=== PATIENT | female | born 1965 | race African-American/Black ===

== ENCOUNTER 2016-10-21 16:07 | Emergency (ER) | payer OTHER ==
[2016-10-21 17:08] VITALS: BP 115/84; PULSE 82; TEMP 98; BMI 29.6
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
[2016-10-21 19:46] LABS: BASOPHIL 1.4 % (0-2.0); EOSINOPHIL 3.1 % (0-4.5); MCH 20.8 pg (25.7-33.7); MCHC 30.5 g/dl (32.0-36.0); MEAN CELL VOLUME 68.2 fl (80-96); MEAN PLT VOLUME 8.2 fl (7.5-11.1); NEUTROPHILS 55.8 % (42.8-82.8); PLATELET COUNT 263 K/MM3 (134-434); RDW 19.7 % (11.6-15.6); WHITE BLOOD COUNT 5.7 K/mm3 (4.0-10.0)
[2016-10-21 20:12] LABS: ALBUMIN 3.4 g/dl (3.4-5.0); ALK PHOS 64 U/L (45-117); ANION GAP 7 (8-16); BILIRUBIN,TOTAL 0.2 mg/dL (0.2-1.0); CALCIUM 8.8 mg/dL (8.5-10.1); CO2 26 mmol/L (21-32); CREATININE 0.8 mg/dL (0.55-1.02); GLUCOSE,RANDOM 98 mg/dL (74-106); SGPT/ALT 35 U/L (12-78); TOT PROT 7.6 g/dl (6.4-8.2)
[2016-10-21 20:17] LABS: SGOT/AST 49 U/L (15-37)
[2016-10-21 20:32] LABS: PROTHROMBIN TIME (PATIENT) 45.8 SEC (9.98-11.88)
[2016-10-21 21:01] LABS: INR 4.05 (0.82-1.09)
--- NOTE | 2016-10-21 21:08 | PDOC ---
*Physical Exam - Vital Signs Last Vital Signs Temp Pulse Resp BP Pulse Ox 98.0 F 82 18 115/84 100 10/21/16 16:07 10/21/16 16:07 10/21/16 16:07 10/21/16 16:07 10/21/16 16:07 ED Treatment Course - LABORATORY CBC & Chemistry Diagram: 10/21/16 17:37 10/21/16 19:33 - ADDITIONAL ORDERS Additional order review: Laboratory Results 10/21/16 10/21/16 19:33 17:37 INR 4.05 H* D Sodium 144 Potassium 4.0 Chloride 111 H Carbon Dioxide 26 Anion Gap 7 L BUN 10 Creatinine 0.8 Creat Clearance w eGFR > 60 Random Glucose 98 Calcium 8.8 Total Bilirubin 0.2 D AST 49 H D ALT 35 Alkaline Phosphatase 64 Total Protein 7.6 Albumin 3.4 10/21/16 17:37 RBC 4.66 MCV 68.2 L MCHC 30.5 L RDW 19.7 H MPV 8.2 Neutrophils % 55.8 Lymphocytes % 32.3 Monocytes % 7.4 Eosinophils % 3.1 Basophils % 1.4 *DC/Admit/Observation/Transfer Diagnosis at time of Disposition: Leg pain, Coagulopathy - Discharge Dispostion Disposition: HOME Condition at time of disposition: Stable Admit: No - Referrals Referrals: Erendira Stehpenson MD [Primary Care Provider] - - Patient Instructions Printed Discharge Instructions: Warfarin Additional Instructions: Don't take Coumadin for two days. restart on day 3. See Dr. Stephenson on Wednesday.
[2016-10-21 22:14] LABS: ANISOCYTOSIS 1+; HYPOCHROMIA 3+; MICROCYTOSIS 1+; OVALOCYTES 1+; PLATELET ESTIMATE ADEQUATE (NORMAL); POIKILOCYTOSIS 1+; TARGET CELLS RARE
== END 2016-10-21 21:17 | disposition home or self-care (01) ==
LOC: JER 16:07
DX: D68.9 Coagulation defect, unspecified (principal); Z79.01 Long term (current) use of anticoagulants
CPT/HCPCS: 36415; 80053; 85025; 85610; 99282-25

== ENCOUNTER 2019-11-04 15:33 | Emergency (ER) | payer OTHER ==
[2019-11-04 16:02] VITALS: BP 118/79; PULSE 80; TEMP 98.3; BMI 31.1
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
[2019-11-04 17:04] LABS: BASO % 1.8 % (0-2.0); HEMATOCRIT 44.1 % (32.4-45.2); HEMOGLOBIN 14.7 GM/dL (10.7-15.3); LYMPH % 34.3 % (8-40); MCH 31.3 pg (25.7-33.7); MCHC 33.2 g/dl (32.0-36.0); MEAN CELL VOLUME 94.2 fl (80-96); MEAN PLT VOLUME 9.1 fl (7.5-11.1); MONO % 6.6 % (3.8-10.2); NEUT % 53.3 % (42.8-82.8); PLATELET COUNT 221 K/MM3 (134-434); RBC 4.68 M/mm3 (3.60-5.2); RDW 14.1 % (11.6-15.6); WHITE BLOOD COUNT 5.4 K/mm3 (4.0-10.0)
[2019-11-04 17:09] LABS: INR 2.27 (0.83-1.09)
[2019-11-04 17:55] LABS: ALBUMIN 3.6 g/dl (3.4-5.0); BILIRUBIN,TOTAL 0.2 mg/dL (0.2-1); BLOOD UREA NITROGEN 8.6 mg/dL (7-18); CALCIUM 9.6 mg/dL (8.5-10.1); CREATININE 0.9 mg/dL (0.55-1.3); POTASSIUM 4.7 mmol/L (3.5-5.1); TOT PROT 7.8 g/dl (6.4-8.2)
== END 2019-11-04 19:04 | disposition home or self-care (01) ==
LOC: JER 15:33
DX: Z79.01 Long term (current) use of anticoagulants (principal)
CPT/HCPCS: 36415; 70450-TC; 80053; 85025; 85610; 86850; 86900; 86901; 99284-25

== ENCOUNTER 2021-08-07 11:32 | Emergency (ER) | payer OTHER ==
[2021-08-07 11:54] VITALS: BP 130/85; PULSE 100; TEMP 97.8; BMI 30.5
[2021-08-07] MEDS ORDERED: ACETAMINOPHEN 500 MG TABLET (FP) PO ONE (12:45)
[2021-08-07] MEDS ORDERED: DIPHTH,PERTUSS(ACELL),TET 0.5 ML DISP.SYRIN IM ONE ×2 (12:45→12:47)
[2021-08-07] MEDS ORDERED: ACETAMINOPHEN 500 MG TABLET (FP) ONE (12:46)
[2021-08-07 18:00] LABS: BASO % 1.1 % (0-2.0); EOS % 1.7 % (0-4.5); HEMATOCRIT 45.6 % (32.4-45.2); HEMOGLOBIN 14.9 GM/dL (10.7-15.3); LYMPH % 31.8 % (8-40); MCH 29.9 pg (25.7-33.7); MCHC 32.6 g/dl (32.0-36.0); MEAN CELL VOLUME 91.7 fl (80-96); MEAN PLT VOLUME 8.9 fl (7.5-11.1); MONO % 6.4 % (3.8-10.2); PLATELET COUNT 210 10^3/uL (134-434); RBC 4.97 M/mm3 (3.60-5.2); RDW 13.9 % (11.6-15.6); WHITE BLOOD COUNT 5.8 K/mm3 (4.0-10.0)
[2021-08-07 18:07] LABS: INR 1.74 (0.83-1.09); PROTHROMBIN TIME (PATIENT) 20.1 SEC (9.7-13.0)
[2021-08-07 18:59] LABS: ALBUMIN 3.8 g/dl (3.4-5.0); BLOOD UREA NITROGEN 8.9 mg/dL (7-18); CALCIUM 9.9 mg/dL (8.5-10.1)
[2021-08-07 19:02] LABS: CREATININE 0.7 mg/dL (0.55-1.3)
[2021-08-07 19:04] LABS: BILIRUBIN,TOTAL 0.6 mg/dL (0.2-1); TOT PROT 7.9 g/dl (6.4-8.2)
== END 2021-08-07 20:59 | disposition home or self-care (01) ==
LOC: JERFT 11:32
PROC: 3E0234Z Introduction of Serum, Toxoid and Vaccine into Muscle, Percutaneous Approach (ICD-10-PCS; principal; 2021-08-07)
DX: S60.511A Abrasion of right hand, initial encounter (principal); M25.531 Pain in right wrist; S90.31XA Contusion of right foot, initial encounter; M25.571 Pain in right ankle and joints of right foot; W10.9XXA Fall (on) (from) unspecified stairs and steps, initial encounter
CPT/HCPCS: 36415; 73110-TC-RT-FY; 73130-TC-RT-FY; 73562-TC-RT-FY; 73590-TC-RT-FY; 73610-TC-RT-FY; 73630-TC-RT-FY; 80053; 85025; 85610; 90471; 90715; 99285-25

== ENCOUNTER 2021-08-15 23:08 | Inpatient (IN) | payer OTHER ==
[2021-08-15 23:15] VITALS: BMI 31.9
[2021-08-16] MEDS ORDERED: ACETAMINOPHEN 1000 MG/100 ML BAG IVPB ONE (01:02)
[2021-08-16] MEDS ORDERED: ACETAMINOPHEN INJECTION 100 ML IVPB ONE ×2 (01:21→05:57)
[2021-08-16 01:50] LABS: BASO % 1.2 % (0-2.0); EOS % 3.5 % (0-4.5); HEMATOCRIT 40.4 % (32.4-45.2); HEMOGLOBIN 13.4 GM/dL (10.7-15.3); MCH 30.3 pg (25.7-33.7); MCHC 33.2 g/dl (32.0-36.0); MEAN CELL VOLUME 91.2 fl (80-96); MEAN PLT VOLUME 8.7 fl (7.5-11.1); MONO % 7.5 % (3.8-10.2); NEUT % 61.8 % (42.8-82.8); PLATELET COUNT 225 10^3/uL (134-434); RBC 4.43 M/mm3 (3.60-5.2); RDW 14.1 % (11.6-15.6); WHITE BLOOD COUNT 6.1 K/mm3 (4.0-10.0)
[2021-08-16 02:03] LABS: INR 2.52 (0.83-1.09); PROTHROMBIN TIME (PATIENT) 29.2 SEC (9.7-13.0)
[2021-08-16 02:05] LABS: ACTIVATED PTT 41.6 SECONDS (25.2-36.5)
[2021-08-16 02:09] LABS: ALBUMIN 3.3 g/dl (3.4-5.0)
[2021-08-16 02:10] LABS: BLOOD UREA NITROGEN 15.9 mg/dL (7-18)
[2021-08-16 02:14] LABS: BILIRUBIN,TOTAL 0.3 mg/dL (0.2-1); TOT PROT 7.3 g/dl (6.4-8.2)
[2021-08-16 02:55] LABS: ERYTHROCYTE SEDIMENTATION RATE 34 mm/hr (0-30)
[2021-08-16] MEDS ORDERED: morphine CARPU-JECT 2 MG/1 ML DISP.SYRIN IVPUSH ONE (02:58)
[2021-08-16] MEDS: ACETAMINOPHEN 1000 MG/100 ML BAG IVPB PRN ×2 (06:03→19:11)
[2021-08-16 06:38] LABS: URIC ACID 4.2 mg/dL (2.6-7.2)
[2021-08-16 13:29] LABS: CALCIUM 9.3 mg/dL (8.5-10.1)
[2021-08-16 13:30] LABS: ALBUMIN 3.4 g/dl (3.4-5.0)
[2021-08-16 13:33] LABS: CREATININE 0.7 mg/dL (0.55-1.3)
[2021-08-16 13:35] LABS: BILIRUBIN,TOTAL 0.4 mg/dL (0.2-1); TOT PROT 7.3 g/dl (6.4-8.2)
[2021-08-16 15:17] LABS: BLOOD UREA NITROGEN 13.8 mg/dL (7-18)
[2021-08-16] MEDS ORDERED: WARFARIN NA 2 MG TABLET PO ONE (18:45)
[2021-08-16] MEDS ORDERED: predniSONE 10 MG TABLET (UD) PO PRN (18:52)
[2021-08-17 08:59] LABS: BASO % 1.7 % (0-2.0); EOS % 4.8 % (0-4.5); HEMATOCRIT 39.8 % (32.4-45.2); HEMOGLOBIN 13.1 GM/dL (10.7-15.3); LYMPH % 28.5 % (8-40); MCH 30.1 pg (25.7-33.7); MCHC 32.9 g/dl (32.0-36.0); MEAN CELL VOLUME 91.6 fl (80-96); MEAN PLT VOLUME 8.7 fl (7.5-11.1); MONO % 6.6 % (3.8-10.2); NEUT % 58.4 % (42.8-82.8); PLATELET COUNT 227 10^3/uL (134-434); RBC 4.34 M/mm3 (3.60-5.2); RDW 13.9 % (11.6-15.6); WHITE BLOOD COUNT 4.3 K/mm3 (4.0-10.0)
[2021-08-17 09:11] LABS: INR 2.39 (0.83-1.09); PROTHROMBIN TIME (PATIENT) 27.7 SEC (9.7-13.0)
[2021-08-17 09:20] LABS: ALBUMIN 3.2 g/dl (3.4-5.0); BLOOD UREA NITROGEN 12.2 mg/dL (7-18); CALCIUM 9.2 mg/dL (8.5-10.1); MAGNESIUM 2.3 mg/dL (1.8-2.4)
[2021-08-17 09:23] LABS: PHOSPHOROUS 2.8 mg/dL (2.5-4.9)
[2021-08-17 09:24] LABS: CREATININE 0.6 mg/dL (0.55-1.3)
[2021-08-17 09:25] LABS: TOT PROT 6.9 g/dl (6.4-8.2)
[2021-08-17 09:26] LABS: BILIRUBIN,TOTAL 0.6 mg/dL (0.2-1)
[2021-08-17] MEDS ORDERED: SODIUM CHLORIDE 0.9% 250 ML INFUS.BAG IV ONE (17:07)
[2021-08-17] MEDS ORDERED: SODIUM CHLORIDE 0.9% 500 ML INFUS.BAG IV ONE (17:07)
[2021-08-17] MEDS ORDERED: SODIUM CHLORIDE 1,000 ML IV SCH (17:15)
[2021-08-17] MEDS ORDERED: HYDROCORTISONE 0.5% TOPICAL CREAM 30 GM TUBE TP ONE (17:28)
[2021-08-17] MEDS: WARFARIN NA 2 MG TABLET PO SCH (17:59)
[2021-08-17 23:44] LABS: EPI CELLS >36 /uL (0-25.1); HYALINE CASTS 3 /uL (0-3.1); PH,URINE 5.5 (5.0-8.0); URINE APPEARANCE CLOUDY; URINE BACTERIA 5540 /uL (0-1359); URINE BILIRUBIN NEGATIVE (NEGATIVE); URINE COLOR YELLOW; URINE GLUCOSE (UA) NEGATIVE (NEGATIVE); URINE KETONE NEGATIVE (NEGATIVE); URINE LEUK ESTERASE NEGATIVE (NEGATIVE); URINE NITRITE NEGATIVE (NEGATIVE); URINE PROTEIN NEGATIVE (NEGATIVE); URINE RBC 7 /uL (0-23.9); URINE UROBILINOGEN 0.2 mg/dL (0.2-1.0)
[2021-08-18] MEDS ORDERED: MELATONIN 5 MG TABLETS PO ONE (01:02)
[2021-08-18 09:24] LABS: MCH 31.2 pg (25.7-33.7); MCHC 34.2 g/dl (32.0-36.0); MEAN CELL VOLUME 91.1 fl (80-96); MEAN PLT VOLUME 8.7 fl (7.5-11.1); PLATELET COUNT 206 10^3/uL (134-434); RBC 4.18 M/mm3 (3.60-5.2); RDW 14.3 % (11.6-15.6); WHITE BLOOD COUNT 5.2 K/mm3 (4.0-10.0)
[2021-08-18 09:31] LABS: INR 2.36 (0.83-1.09); PROTHROMBIN TIME (PATIENT) 27.4 SEC (9.7-13.0)
[2021-08-18 10:36] LABS: CALCIUM 9.2 mg/dL (8.5-10.1)
[2021-08-18 10:37] LABS: BLOOD UREA NITROGEN 11.6 mg/dL (7-18)
[2021-08-18 10:53] LABS: CREATININE 0.7 mg/dL (0.55-1.3)
[2021-08-18] MEDS: WARFARIN NA 2 MG TABLET PO SCH (18:34)
[2021-08-18] MEDS ORDERED: ACETAMINOPHEN 1000 MG/100 ML BAG IVPB ONE (22:54)
[2021-08-19 09:43] LABS: BASO % 1.2 % (0-2.0); EOS % 3.4 % (0-4.5); HEMOGLOBIN 13.4 GM/dL (10.7-15.3); LYMPH % 28.2 % (8-40); MCH 30.5 pg (25.7-33.7); MCHC 33.6 g/dl (32.0-36.0); MEAN PLT VOLUME 8.4 fl (7.5-11.1); MONO % 7.4 % (3.8-10.2); NEUT % 59.8 % (42.8-82.8); PLATELET COUNT 213 10^3/uL (134-434); RBC 4.39 M/mm3 (3.60-5.2); RDW 14.4 % (11.6-15.6); WHITE BLOOD COUNT 4.4 K/mm3 (4.0-10.0)
[2021-08-19 09:48] LABS: INR 2.55 (0.83-1.09); PROTHROMBIN TIME (PATIENT) 29.6 SEC (9.7-13.0)
[2021-08-19 10:10] LABS: BLOOD UREA NITROGEN 12.6 mg/dL (7-18); CALCIUM 9.1 mg/dL (8.5-10.1)
[2021-08-19 10:11] LABS: ALBUMIN 3.2 g/dl (3.4-5.0)
[2021-08-19 10:14] LABS: CREATININE 0.7 mg/dL (0.55-1.3)
[2021-08-19 10:16] LABS: BILIRUBIN,TOTAL 0.5 mg/dL (0.2-1); TOT PROT 6.9 g/dl (6.4-8.2)
[2021-08-19] MEDS: WARFARIN NA 2 MG TABLET PO SCH (17:35)
[2021-08-19] MEDS: CEPHALEXIN MONOHYDRATE 250 MG CAPSULE (FP) PO SCH (19:14)
[2021-08-20] MEDS: CEPHALEXIN MONOHYDRATE 250 MG CAPSULE (FP) PO SCH ×3 (00:14→12:50)
[2021-08-20 10:12] LABS: INR 2.43 (0.83-1.09); PROTHROMBIN TIME (PATIENT) 28.2 SEC (9.7-13.0)
[2021-08-20] MEDS ORDERED: DOCUSATE SODIUM 100 MG CAPSULE (FP) PO PRN (16:37)
[2021-08-20] MEDS: WARFARIN NA 2 MG TABLET PO SCH (18:03)
[2021-08-20] MEDS: CEFAZOLIN 2 GM in DEXTROSE 5%-WATER - 100 ML IVPB SCH (18:29)
[2021-08-20] MEDS ORDERED: MELATONIN 5 MG TABLETS PO ONE (23:13)
[2021-08-20] MEDS: SENNOSIDES 8.6MG TABLET (FP) PO SCH (23:36)
[2021-08-21] MEDS: CEFAZOLIN 2 GM in DEXTROSE 5%-WATER - 100 ML IVPB SCH ×2 (01:09→15:01)
[2021-08-21 09:27] LABS: EOS % 0.4 % (0-4.5); HEMOGLOBIN 13.7 GM/dL (10.7-15.3); LYMPH % 17.8 % (8-40); MCH 30.5 pg (25.7-33.7); MCHC 33.5 g/dl (32.0-36.0); MEAN PLT VOLUME 8.3 fl (7.5-11.1); NEUT % 77.8 % (42.8-82.8); PLATELET COUNT 229 10^3/uL (134-434); RBC 4.51 M/mm3 (3.60-5.2); WHITE BLOOD COUNT 5.6 K/mm3 (4.0-10.0)
[2021-08-21 09:46] LABS: CALCIUM 9.5 mg/dL (8.5-10.1)
[2021-08-21 09:47] LABS: ALBUMIN 3.3 g/dl (3.4-5.0); BLOOD UREA NITROGEN 10.8 mg/dL (7-18); MAGNESIUM 2.1 mg/dL (1.8-2.4)
[2021-08-21 09:50] LABS: CREATININE 0.6 mg/dL (0.55-1.3); PHOSPHOROUS 3.1 mg/dL (2.5-4.9)
[2021-08-21 09:51] LABS: TOT PROT 7.3 g/dl (6.4-8.2)
[2021-08-21 09:52] LABS: BILIRUBIN,TOTAL 0.6 mg/dL (0.2-1)
[2021-08-21] MEDS: SENNOSIDES 8.6MG TABLET (FP) PO SCH ×2 (10:00→21:44)
[2021-08-21 11:52] LABS: ERYTHROCYTE SEDIMENTATION RATE 38 mm/hr (0-30)
[2021-08-21 18:31] LABS: PROTHROMBIN TIME (PATIENT) 23.2 SEC (9.7-13.0)
[2021-08-21] MEDS: WARFARIN NA 2 MG TABLET PO SCH (18:53)
[2021-08-21] MEDS ORDERED: MELATONIN 5 MG TABLETS PO ONE (21:56)
[2021-08-22] MEDS ORDERED: CEFAZOLIN 2 GM in DEXTROSE 5%-WATER - 100 ML IVPB SCH
[2021-08-22] MEDS: CEFAZOLIN 2 GM in DEXTROSE 5%-WATER - 100 ML IVPB SCH ×3 (02:05→17:01)
[2021-08-22 09:56] LABS: INR 2.02 (0.83-1.09); PROTHROMBIN TIME (PATIENT) 23.4 SEC (9.7-13.0)
[2021-08-22 09:57] LABS: BASO % 1.4 % (0-2.0); EOS % 3.5 % (0-4.5); HEMATOCRIT 39.2 % (32.4-45.2); LYMPH % 24.6 % (8-40); MCH 30.5 pg (25.7-33.7); MCHC 33.1 g/dl (32.0-36.0); MEAN PLT VOLUME 8.5 fl (7.5-11.1); MONO % 4.9 % (3.8-10.2); NEUT % 65.6 % (42.8-82.8); PLATELET COUNT 231 10^3/uL (134-434); RBC 4.26 M/mm3 (3.60-5.2); RDW 14.1 % (11.6-15.6); WHITE BLOOD COUNT 5.4 K/mm3 (4.0-10.0)
[2021-08-22 10:21] LABS: CALCIUM 9.2 mg/dL (8.5-10.1)
[2021-08-22 10:25] LABS: CREATININE 0.8 mg/dL (0.55-1.3)
[2021-08-22] MEDS: SENNOSIDES 8.6MG TABLET (FP) PO SCH ×2 (11:29→21:26)
[2021-08-22] MEDS: WARFARIN NA 2 MG TABLET PO SCH (17:39)
[2021-08-22] MEDS ORDERED: MELATONIN 1 MG TABLET PO ONE (20:58)
[2021-08-23] MEDS: CEFAZOLIN 2 GM in DEXTROSE 5%-WATER - 100 ML IVPB SCH ×2 (01:55→10:52)
[2021-08-23] MEDS: SENNOSIDES 8.6MG TABLET (FP) PO SCH ×2 (10:54→21:57)
[2021-08-23] MEDS: WARFARIN NA 2 MG TABLET PO SCH (17:32)
[2021-08-23] MEDS: CEPHALEXIN MONOHYDRATE 500 MG CAPSULE (UD) PO SCH (17:32)
[2021-08-23] MEDS: MELATONIN 5 MG TABLETS PO PRN (21:57)
[2021-08-24] MEDS: CEPHALEXIN MONOHYDRATE 500 MG CAPSULE (UD) PO SCH ×5 (00:05→23:00)
[2021-08-24 09:44] LABS: BASO % 2.1 % (0-2.0); EOS % 4.5 % (0-4.5); HEMOGLOBIN 13.2 GM/dL (10.7-15.3); LYMPH % 28.2 % (8-40); MCH 30.4 pg (25.7-33.7); MCHC 32.9 g/dl (32.0-36.0); MEAN CELL VOLUME 92.4 fl (80-96); MEAN PLT VOLUME 8.6 fl (7.5-11.1); MONO % 7.6 % (3.8-10.2); NEUT % 57.6 % (42.8-82.8); PLATELET COUNT 243 10^3/uL (134-434); RBC 4.33 M/mm3 (3.60-5.2); RDW 14.2 % (11.6-15.6); WHITE BLOOD COUNT 4.8 K/mm3 (4.0-10.0)
[2021-08-24 09:46] LABS: INR 2.06 (0.83-1.09); PROTHROMBIN TIME (PATIENT) 23.9 SEC (9.7-13.0)
[2021-08-24 10:02] LABS: CALCIUM 9.5 mg/dL (8.5-10.1)
[2021-08-24 10:03] LABS: BLOOD UREA NITROGEN 13.7 mg/dL (7-18)
[2021-08-24 10:06] LABS: CREATININE 0.7 mg/dL (0.55-1.3)
[2021-08-24] MEDS: SENNOSIDES 8.6MG TABLET (FP) PO SCH ×2 (10:17→22:56)
[2021-08-24] MEDS: WARFARIN NA 2 MG TABLET PO SCH (18:21)
[2021-08-24] MEDS: MELATONIN 5 MG TABLETS PO PRN (22:56)
[2021-08-25] MEDS: CEPHALEXIN MONOHYDRATE 500 MG CAPSULE (UD) PO SCH ×2 (06:06→11:32)
[2021-08-25] MEDS: SENNOSIDES 8.6MG TABLET (FP) PO SCH ×2 (09:15→21:17)
[2021-08-25 10:00] LABS: BASO % 2.4 % (0-2.0); EOS % 3.8 % (0-4.5); HEMATOCRIT 39.7 % (32.4-45.2); HEMOGLOBIN 13.1 GM/dL (10.7-15.3); LYMPH % 28.8 % (8-40); MCH 30.4 pg (25.7-33.7); MEAN CELL VOLUME 92.1 fl (80-96); MEAN PLT VOLUME 8.5 fl (7.5-11.1); MONO % 8.2 % (3.8-10.2); NEUT % 56.8 % (42.8-82.8); PLATELET COUNT 228 10^3/uL (134-434); RBC 4.31 M/mm3 (3.60-5.2); RDW 14.4 % (11.6-15.6); WHITE BLOOD COUNT 4.8 K/mm3 (4.0-10.0)
[2021-08-25 10:08] LABS: INR 2.05 (0.83-1.09); PROTHROMBIN TIME (PATIENT) 23.8 SEC (9.7-13.0)
[2021-08-25 10:24] LABS: BLOOD UREA NITROGEN 13.2 mg/dL (7-18); CALCIUM 9.2 mg/dL (8.5-10.1)
[2021-08-25 10:27] LABS: CREATININE 0.6 mg/dL (0.55-1.3)
[2021-08-25] MEDS: WARFARIN NA 2 MG TABLET PO SCH (17:07)
[2021-08-26 09:40] LABS: BASO % 2.5 % (0-2.0); EOS % 4.3 % (0-4.5); HEMATOCRIT 41.1 % (32.4-45.2); HEMOGLOBIN 13.8 GM/dL (10.7-15.3); LYMPH % 26.4 % (8-40); MCH 30.9 pg (25.7-33.7); MCHC 33.6 g/dl (32.0-36.0); MEAN CELL VOLUME 92.2 fl (80-96); MONO % 5.2 % (3.8-10.2); NEUT % 61.6 % (42.8-82.8); RBC 4.46 M/mm3 (3.60-5.2); RDW 14.5 % (11.6-15.6); WHITE BLOOD COUNT 4.7 K/mm3 (4.0-10.0)
[2021-08-26 09:46] LABS: INR 2.17 (0.83-1.09); PROTHROMBIN TIME (PATIENT) 25.2 SEC (9.7-13.0)
[2021-08-26] MEDS: SENNOSIDES 8.6MG TABLET (FP) PO SCH ×2 (09:49→21:18)
[2021-08-26 10:10] LABS: CALCIUM 9.2 mg/dL (8.5-10.1)
[2021-08-26 10:14] LABS: CREATININE 0.6 mg/dL (0.55-1.3)
[2021-08-26 10:25] LABS: MEAN PLT VOLUME 8.3 fl (7.5-11.1); PLATELET COUNT 235 10^3/uL (134-434); PLATELET ESTIMATE ADEQUATE
[2021-08-26] MEDS: WARFARIN NA 2 MG TABLET PO SCH (17:16)
[2021-08-27 10:04] LABS: BASO % 1.6 % (0-2.0); EOS % 5.6 % (0-4.5); HEMOGLOBIN 13.7 GM/dL (10.7-15.3); LYMPH % 27.8 % (8-40); MCH 30.8 pg (25.7-33.7); MCHC 33.5 g/dl (32.0-36.0); MEAN PLT VOLUME 8.2 fl (7.5-11.1); MONO % 5.8 % (3.8-10.2); NEUT % 59.2 % (42.8-82.8); PLATELET COUNT 239 10^3/uL (134-434); RBC 4.45 M/mm3 (3.60-5.2); RDW 14.7 % (11.6-15.6); WHITE BLOOD COUNT 5.1 K/mm3 (4.0-10.0)
[2021-08-27 10:08] LABS: INR 2.08 (0.83-1.09); PROTHROMBIN TIME (PATIENT) 24.1 SEC (9.7-13.0)
[2021-08-27] MEDS: SENNOSIDES 8.6MG TABLET (FP) PO SCH ×2 (10:53→22:20)
[2021-08-27 11:43] LABS: BLOOD UREA NITROGEN 12.1 mg/dL (7-18); CALCIUM 9.3 mg/dL (8.5-10.1); CREATININE 0.8 mg/dL (0.55-1.3)
[2021-08-27] MEDS: WARFARIN NA 2 MG TABLET PO SCH (17:30)
[2021-08-28 11:22] LABS: BASO % 1.8 % (0-2.0); EOS % 5.8 % (0-4.5); HEMATOCRIT 40.3 % (32.4-45.2); HEMOGLOBIN 13.5 GM/dL (10.7-15.3); LYMPH % 24.5 % (8-40); MCH 30.8 pg (25.7-33.7); MCHC 33.6 g/dl (32.0-36.0); MEAN CELL VOLUME 91.7 fl (80-96); MEAN PLT VOLUME 8.1 fl (7.5-11.1); MONO % 7.8 % (3.8-10.2); NEUT % 60.1 % (42.8-82.8); PLATELET COUNT 232 10^3/uL (134-434); RBC 4.39 M/mm3 (3.60-5.2); RDW 14.4 % (11.6-15.6)
[2021-08-28 11:24] LABS: INR 2.07 (0.83-1.09)
[2021-08-28 11:43] LABS: CALCIUM 9.7 mg/dL (8.5-10.1)
[2021-08-28 11:45] LABS: CREATININE 0.7 mg/dL (0.55-1.3)
[2021-08-28 11:46] LABS: BLOOD UREA NITROGEN 11.3 mg/dL (7-18)
[2021-08-28] MEDS: SENNOSIDES 8.6MG TABLET (FP) PO SCH (12:47)
[2021-08-28] MEDS: WARFARIN NA 2 MG TABLET PO SCH (17:38)
[2021-08-29] MEDS: SENNOSIDES 8.6MG TABLET (FP) PO SCH ×3 (00:39→22:12)
[2021-08-29] MEDS: MELATONIN 5 MG TABLETS PO PRN ×2 (00:39→22:15)
[2021-08-29 10:00] LABS: BASO % 3.5 % (0-2.0); HEMATOCRIT 40.5 % (32.4-45.2); HEMOGLOBIN 13.4 GM/dL (10.7-15.3); LYMPH % 27.8 % (8-40); MCH 30.4 pg (25.7-33.7); MCHC 33.1 g/dl (32.0-36.0); MEAN PLT VOLUME 8.8 fl (7.5-11.1); NEUT % 57.7 % (42.8-82.8); PLATELET COUNT 237 10^3/uL (134-434); RDW 14.3 % (11.6-15.6); WHITE BLOOD COUNT 4.8 K/mm3 (4.0-10.0)
[2021-08-29 11:36] LABS: BLOOD UREA NITROGEN 12.9 mg/dL (7-18); CALCIUM 9.6 mg/dL (8.5-10.1)
[2021-08-29 11:40] LABS: CREATININE 0.7 mg/dL (0.55-1.3)
[2021-08-29] MEDS: WARFARIN NA 2 MG TABLET PO SCH (17:09)
[2021-08-30 09:59] LABS: BASO % 1.9 % (0-2.0); EOS % 4.6 % (0-4.5); HEMATOCRIT 38.5 % (32.4-45.2); HEMOGLOBIN 12.8 GM/dL (10.7-15.3); LYMPH % 27.1 % (8-40); MCH 30.6 pg (25.7-33.7); MCHC 33.2 g/dl (32.0-36.0); MEAN CELL VOLUME 92.1 fl (80-96); MEAN PLT VOLUME 8.5 fl (7.5-11.1); MONO % 8.1 % (3.8-10.2); NEUT % 58.3 % (42.8-82.8); PLATELET COUNT 231 10^3/uL (134-434); RBC 4.18 M/mm3 (3.60-5.2); RDW 14.1 % (11.6-15.6); WHITE BLOOD COUNT 4.9 K/mm3 (4.0-10.0)
[2021-08-30] MEDS: SENNOSIDES 8.6MG TABLET (FP) PO SCH ×2 (10:12→22:39)
[2021-08-30 10:23] LABS: BLOOD UREA NITROGEN 12.7 mg/dL (7-18)
[2021-08-30 10:24] LABS: CALCIUM 9.4 mg/dL (8.5-10.1)
[2021-08-30 10:26] LABS: CREATININE 0.7 mg/dL (0.55-1.3)
[2021-08-30 13:44] LABS: INR 2.24 (0.83-1.09)
[2021-08-30] MEDS: WARFARIN NA 2 MG TABLET PO SCH (17:09)
[2021-08-30] MEDS: MELATONIN 5 MG TABLETS PO PRN (22:39)
[2021-08-31] MEDS ORDERED: ACETAMINOPHEN 325 MG TABLET (FP) PO ONE (04:04)
[2021-08-31] MEDS ORDERED: ACETAMINOPHEN 325 MG TABLET (FP) ONE (09:33)
[2021-08-31] MEDS: SENNOSIDES 8.6MG TABLET (FP) PO SCH ×2 (10:21→22:31)
[2021-08-31 12:53] LABS: INR 2.36 (0.83-1.09); PROTHROMBIN TIME (PATIENT) 27.4 SEC (9.7-13.0)
[2021-08-31] MEDS: WARFARIN NA 2 MG TABLET PO SCH (17:32)
[2021-08-31] MEDS: MELATONIN 5 MG TABLETS PO PRN (22:31)
[2021-09-01 08:47] LABS: HEMATOCRIT 38.2 % (32.4-45.2); HEMOGLOBIN 12.7 GM/dL (10.7-15.3); INR 2.42 (0.83-1.09); MCH 30.5 pg (25.7-33.7); MCHC 33.3 g/dl (32.0-36.0); MEAN CELL VOLUME 91.7 fl (80-96); MEAN PLT VOLUME 8.4 fl (7.5-11.1); PLATELET COUNT 224 10^3/uL (134-434); PROTHROMBIN TIME (PATIENT) 28.1 SEC (9.7-13.0); RBC 4.16 M/mm3 (3.60-5.2); RDW 14.2 % (11.6-15.6); WHITE BLOOD COUNT 4.5 K/mm3 (4.0-10.0)
[2021-09-01 09:44] LABS: BLOOD UREA NITROGEN 13.3 mg/dL (7-18)
[2021-09-01 09:45] LABS: CALCIUM 9.3 mg/dL (8.5-10.1)
[2021-09-01 09:46] LABS: CREATININE 0.6 mg/dL (0.55-1.3)
[2021-09-01] MEDS: SENNOSIDES 8.6MG TABLET (FP) PO SCH ×2 (10:09→21:10)
[2021-09-01] MEDS: ACETAMINOPHEN 325 MG TABLET (FP) PO PRN (10:09)
[2021-09-01] MEDS: WARFARIN NA 2 MG TABLET PO SCH (17:46)
[2021-09-01] MEDS: MELATONIN 5 MG TABLETS PO PRN (21:16)
[2021-09-02] MEDS: ACETAMINOPHEN 325 MG TABLET (FP) PO PRN (10:29)
[2021-09-02] MEDS: SENNOSIDES 8.6MG TABLET (FP) PO SCH ×2 (10:30→21:56)
[2021-09-02 10:50] LABS: BASO % 1.4 % (0-2.0); EOS % 4.6 % (0-4.5); HEMATOCRIT 40.9 % (32.4-45.2); HEMOGLOBIN 13.5 GM/dL (10.7-15.3); LYMPH % 29.6 % (8-40); MCH 30.4 pg (25.7-33.7); MCHC 32.9 g/dl (32.0-36.0); MEAN CELL VOLUME 92.3 fl (80-96); MEAN PLT VOLUME 8.8 fl (7.5-11.1); MONO % 5.4 % (3.8-10.2); PLATELET COUNT 241 10^3/uL (134-434); RBC 4.43 M/mm3 (3.60-5.2); RDW 14.5 % (11.6-15.6); WHITE BLOOD COUNT 4.3 K/mm3 (4.0-10.0)
[2021-09-02 10:58] LABS: INR 2.45 (0.83-1.09); PROTHROMBIN TIME (PATIENT) 28.4 SEC (9.7-13.0)
[2021-09-02 11:14] LABS: CALCIUM 9.5 mg/dL (8.5-10.1)
[2021-09-02 11:15] LABS: BLOOD UREA NITROGEN 11.6 mg/dL (7-18)
[2021-09-02 11:18] LABS: CREATININE 0.7 mg/dL (0.55-1.3)
[2021-09-02] MEDS: WARFARIN NA 2 MG TABLET PO SCH (17:18)
[2021-09-02] MEDS ORDERED: MELATONIN 5 MG TABLETS PO SCH (22:00)
[2021-09-03 08:57] LABS: EOS % 4.4 % (0-4.5); HEMATOCRIT 39.2 % (32.4-45.2); HEMOGLOBIN 12.7 GM/dL (10.7-15.3); LYMPH % 29.5 % (8-40); MCHC 32.5 g/dl (32.0-36.0); MEAN CELL VOLUME 92.4 fl (80-96); MEAN PLT VOLUME 8.5 fl (7.5-11.1); MONO % 7.7 % (3.8-10.2); NEUT % 57.4 % (42.8-82.8); PLATELET COUNT 212 10^3/uL (134-434); RBC 4.24 M/mm3 (3.60-5.2); RDW 14.2 % (11.6-15.6); WHITE BLOOD COUNT 4.6 K/mm3 (4.0-10.0)
[2021-09-03 09:05] LABS: INR 2.48 (0.83-1.09); PROTHROMBIN TIME (PATIENT) 28.8 SEC (9.7-13.0)
[2021-09-03 09:14] LABS: BLOOD UREA NITROGEN 12.5 mg/dL (7-18); CALCIUM 9.3 mg/dL (8.5-10.1)
[2021-09-03 09:18] LABS: CREATININE 0.7 mg/dL (0.55-1.3)
[2021-09-03] MEDS: SENNOSIDES 8.6MG TABLET (FP) PO SCH (12:54)
[2021-09-03 15:50] VITALS: BP 119/70; PULSE 91; TEMP 98.5
[2021-09-03] MEDS ORDERED: MELATONIN 5 MG TABLETS PO SCH (22:00)
== END 2021-09-03 16:30 | DRG 58 ==
LOC: JER 23:08 → JERBED 08-16 03:13 → J5S 08-16 07:05
PROVIDERS: ADMIT Internal Medicine; ATTEND Internal Medicine
DX: I69.30 Unspecified sequelae of cerebral infarction (principal); U07.1 COVID-19; D68.59 Other primary thrombophilia; G81.94 Hemiplegia, unspecified affecting left nondominant side; E66.9 Obesity, unspecified; M25.462 Effusion, left knee; S83.92XA Sprain of unspecified site of left knee, initial encounter; S93.401A Sprain of unspecified ligament of right ankle, initial encounter; W19.XXXA Unspecified fall, initial encounter; Y93.9 Activity, unspecified; Y92.89 Other specified places as the place of occurrence of the external cause; Y99.9 Unspecified external cause status; Z68.31 Body mass index [BMI] 31.0-31.9, adult
CPT/HCPCS: 0241U-QW; 36415; 73200-TC-RT; 73560-TC-LT-FY; 73610-TC-RT-FY; 73630-TC-RT-FY; 73700-TC-RT; 73718-TC-LT; 73718-TC-RT; 80048; 80053; 81003; 83735; 84100; 84550; 85025; 85027; 85610; 85651; 85730; 86140; 86618; 87040; 87086; 93005; 93010; 93971-TC; 97116-GP; 97162-GP; 99285-25; C9803-CS; U0003; U0005

== ENCOUNTER → 2022-08-11 | Day surgery (SDC) | payer OTHER | END | disposition home or self-care (01) | LOC: FMAMMOTONE 10:16 | PROVIDERS: ATTEND Internal Medicine | PROC: 0HBT3ZX Excision of Right Breast, Percutaneous Approach, Diagnostic (ICD-10-PCS; principal; 2022-08-11) | DX: N60.11 Diffuse cystic mastopathy of right breast (principal); N60.31 Fibrosclerosis of right breast; N60.81 Other benign mammary dysplasias of right breast; N64.89 Other specified disorders of breast; R92.0 Mammographic microcalcification found on diagnostic imaging of breast | CPT/HCPCS: 19081; 76098-TC-FY; 87899; 88305-TC; A4648 ==

== ENCOUNTER 2023-01-06 18:38 | Emergency (ER) | payer OTHER ==
[2023-01-06 18:56] VITALS: RESP 18; BMI 32.6
[2023-01-06] MEDS ORDERED: ACETAMINOPHEN 1000 MG/100 ML BAG IVPB ONE (20:03)
[2023-01-06] MEDS ORDERED: ASPIRIN 81 MG CHEWABLE TABLETS PO ONE (20:21)
[2023-01-06] MEDS ORDERED: ASPIRIN 81 MG CHEWABLE TABLETS ONE ×2 (20:24→20:33)
[2023-01-06] MEDS ORDERED: ACETAMINOPHEN INJECTION 100 ML IVPB ONE (20:25)
[2023-01-06 20:34] LABS: BASO % 1.5 % (0-2.0); EOS % 3.9 % (0-4.5); HEMATOCRIT 42.6 % (32.4-45.2); HEMOGLOBIN 14.6 GM/dL (10.7-15.3); LYMPH % 35.3 % (8-40); MCH 30.6 pg (25.7-33.7); MCHC 34.2 g/dl (32.0-36.0); MEAN CELL VOLUME 89.5 fl (80-96); MEAN PLT VOLUME 9.2 fl (7.5-11.1); MONO % 5.7 % (3.8-10.2); NEUT % 53.6 % (42.8-82.8); PLATELET COUNT 269 10^3/uL (134-434); RBC 4.76 M/mm3 (3.60-5.2); RDW 14.8 % (11.6-15.6); WHITE BLOOD COUNT 5.8 K/mm3 (4.0-10.0)
[2023-01-06 20:47] LABS: INR 2.08 (0.83-1.09)
[2023-01-06 20:49] LABS: ACTIVATED PTT 42.1 SECONDS (25.2-36.5)
[2023-01-06 20:58] LABS: CALCIUM 8.9 mg/dL (8.5-10.1)
[2023-01-06 21:00] LABS: ALBUMIN 3.4 g/dl (3.4-5.0); BLOOD UREA NITROGEN 7.8 mg/dL (7-18); MAGNESIUM 2.2 mg/dL (1.8-2.4)
[2023-01-06 21:02] LABS: CREATININE 0.8 mg/dL (0.55-1.3)
[2023-01-06 21:04] LABS: BILIRUBIN,TOTAL 0.4 mg/dL (0.2-1); TOT PROT 7.8 g/dl (6.4-8.2)
[2023-01-06 22:08] VITALS: BP 125/72; PULSE 65; TEMP 98
== END 2023-01-06 23:03 | disposition home or self-care (01) ==
LOC: JER 18:38
PROC: 3E033NZ Introduction of Analgesics, Hypnotics, Sedatives into Peripheral Vein, Percutaneous Approach (ICD-10-PCS; principal; 2023-01-06)
DX: R07.2 Precordial pain (principal)
CPT/HCPCS: 36415; 71046-TC-FY; 80053; 83735; 83880; 84484; 85025; 85379; 85610; 85730; 93005; 93010; 99285-25